=== PATIENT | male | born 1980 | race African-American/Black ===

== ENCOUNTER 2022-09-12 16:29 | Emergency (ER) | payer OTHER ==
[~2022-09-12] VITALS: Ht 180 cm; Wt 88.0 kg
[2022-09-12] MEDS ORDERED: LACTATED RINGERS 1,000 ML IV ONE (16:45)
[2022-09-12 16:46] LABS: BASOPHILS % (AUTO) 0 % (0-10); EOSINOPHILS # (AUTO) 0.2 10^3/uL (0.0-0.3); EOSINOPHILS % (AUTO) 3 % (0-10); HEMATOCRIT 45 % (40-54); HEMOGLOBIN 14.9 g/dL (13.3-17.7); LYMPHOCYTES # (AUTO) 2.2 X 10^3 (1.0-4.0); LYMPHOCYTES % (AUTO) 39 % (12-44); MEAN CORPUSCULAR HEMOGLOBIN 30 pg (25-34); MEAN CORPUSCULAR HGB CONC 34 g/dL (32-36); MEAN CORPUSCULAR VOLUME 89 fL (80-99); MEAN PLATELET VOLUME 8.9 fL (9.0-12.2); MONOCYTES # (AUTO) 0.7 X 10^3 (0.0-1.0); MONOCYTES % (AUTO) 12 % (0-12); NEUTROPHILS # (AUTO) 2.5 X 10^3 (1.8-7.8); NEUTROPHILS % (AUTO) 44 % (42-75); PLATELET COUNT 240 10^3/uL (130-400); WHITE BLOOD COUNT 5.6 10^3/uL (4.3-11.0)
[2022-09-12 16:53] LABS: ALBUMIN 4.1 GM/DL (3.2-4.5); CHLORIDE 107 MMOL/L (98-107); POTASSIUM 3.9 MMOL/L (3.6-5.0); SODIUM 140 MMOL/L (135-145)
[2022-09-12 16:54] LABS: AMYLASE 81 U/L (25-125); CALCIUM 9.1 MG/DL (8.5-10.1)
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
[2022-09-12 16:56] LABS: GLUCOSE 74 MG/DL (70-105); TOTAL PROTEIN 6.9 GM/DL (6.4-8.2)
[2022-09-12 16:57] LABS: CARBON DIOXIDE 13 MMOL/L (21-32)
[2022-09-12 16:58] LABS: BILIRUBIN,TOTAL 0.5 MG/DL (0.1-1.0)
[2022-09-12 16:59] LABS: ALKALINE PHOSPHATASE 63 U/L (40-136); CREATININE SERUM 1.64 MG/DL (0.60-1.30); GFR ESTIMATED 53
[2022-09-12 17:01] LABS: BUN/CREATININE RATIO 7
[2022-09-12 17:02] LABS: ALANINE AMINOTRANSFERASE 28 U/L (0-55)
[2022-09-12 17:03] LABS: CREATINE KINASE 618 U/L (30-200); LIPASE 41 U/L (8-78)
[2022-09-12 17:06] LABS: INR 1.2 (0.8-1.4); PROTHROMBIN TIME PATIENT 15.2 SEC (12.2-14.7)
[2022-09-12] MEDS ORDERED: IOHEXOL 350 MG/ML 100 ML (OMNIPAQUE 350) VIAL IV ONE (17:30)
[2022-09-12] MEDS ORDERED: NS 100 ML (IVPB) BAG IV ONE (17:30)
[2022-09-12] MEDS ORDERED: HOLD METFORMIN - RECEIVED CONTRAST 20 ML VIAL IV SCH (17:30)
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
[2022-09-12 18:54] LABS: BILIRUBIN,URINE NEGATIVE (NEGATIVE); CLARITY,URINE CLEAR; COLOR,URINE YELLOW; GLUCOSE, URINE (UA) NEGATIVE (NEGATIVE); KETONES,URINE NEGATIVE (NEGATIVE); LEUKOCYTE ESTERASE ,URINE NEGATIVE (NEGATIVE); NITRITE,URINE NEGATIVE (NEGATIVE); PROTEIN,URINE 1+ (NEGATIVE)
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
[2022-09-12 19:01] LABS: SQUAMOUS EPITHELIAL CELL,UR RARE /HPF; WBC,URINE RARE /HPF
[2022-09-12 19:02] LABS: BACTERIA,URINE TRACE /HPF
[2022-09-12 19:11] LABS: AMPHETAMINE SCREEN, URINE POSITIVE (NEGATIVE); BARBITURATE SCREEN URINE NEGATIVE (NEGATIVE); BENZODIAZEPINES SCREEN URINE NEGATIVE (NEGATIVE); CANNABINOID SCREEN, URINE POSITIVE (NEGATIVE); COCAINE SCREEN URINE NEGATIVE (NEGATIVE); METHADONE STAT NEGATIVE (NEGATIVE); OPIATE SCREEN URINE NEGATIVE (NEGATIVE); OXYCODONE STAT NEGATIVE (NEGATIVE); PROPOXYPHENE STAT NEGATIVE (NEGATIVE); TRICYCLIC ANTIDEPRESSANTS SCRE NEGATIVE (NEGATIVE)
[2022-09-12 19:17] VITALS: BP 121/90
== END 2022-09-12 19:17 ==
LOC: EDUNIT# 16:29 → ER 16:31
DX: S39.012A Strain of muscle, fascia and tendon of lower back, initial encounter (principal); R07.89 Other chest pain; R10.84 Generalized abdominal pain; M25.562 Pain in left knee; M79.652 Pain in left thigh; F17.210 Nicotine dependence, cigarettes, uncomplicated; V89.2XXA Person injured in unspecified motor-vehicle accident, traffic, initial encounter; Y92.410 Unspecified street and highway as the place of occurrence of the external cause
CPT/HCPCS: 70450; 70498; 71045; 71260; 72170; 73552; 73562; 74177; 80053; 80306; 81000; 82150; 82550; 82553; 83690; 83874; 84484; 85025; 85610; 85730; 93005; 93041; 94762; 99284; G0390; G0480 ×2; 36415; 80320; 80329